=== PATIENT | male | born 1960 | race Caucasian/White ===

== ENCOUNTER 2021-03-24 18:46 | Emergency (ER) | payer BC ==
[2021-03-24] MEDS ORDERED: Diphtheria,Pertussis(Acell),Tetanus Vaccine 0.5 ML Syringe IM ONE (19:08)
[2021-03-24] MEDS ORDERED: Lidocaine 1% with EPINEPHrine 1:100,000 10 ML MDV INJECT ONE (19:11)
--- NOTE | 2021-03-24 19:17 | EDM.PDOC ---
ED HPI GENERAL MEDICAL PROBLEM - General Chief Complaint: Laceration Stated Complaint: HEAD LAC Time Seen by Provider: 03/24/21 19:10 - History of Present Illness INITIAL COMMENTS - FREE TEXT/NARRATIVE: arrived by private vehicle accompanied by injury about 1 hour ago sat down on an adjustable stool the stool went down and he fell backward struck back of head on pipe bending machine sustained laceration to scalp with moderate bleeding, now resolved no loss of consciousness no significant pain at site no nausea, dizziness, visual disturbance, vomiting does not take anticoagulant medication Endorses mild pain in right upper back Otherwise no significant pain or injury complaints tetanus vaccination uncertain Upper Back Pain Score (Numeric/FACES): 3 - Related Data Allergies Allergy/AdvReac Type Severity Reaction Status Date / Time No Known Allergies Allergy Verified 03/24/21 18:58 Past Medical History Cardiovascular History: Reports: Hypertension Respiratory History: Reports: Asthma - Infectious Disease History Infectious Disease History: Reports: Chicken Pox Social & Family History - Family History Family Medical History: No Pertinent Family History ED ROS GENERAL - Review of Systems Review Of Systems: See Below Constitutional: Denies: Malaise, Weakness HEENT: Denies: Vision Change Respiratory: Denies: Shortness of Breath GI/Abdominal: Denies: Nausea, Vomiting Musculoskeletal: Reports: Back Pain (Mild, upper) Skin: Reports: Wound Neurological: Denies: Headache, Trouble Speaking, Gait Disturbance ED EXAM, SKIN/RASH Exam: See Below Text/Narrative:: Constitutional - awake; alert; no acute distress Head - no facial swelling or weakness; left parietal-occipital scalp laceration, 3 cm length, curvilinear with oblique contour, full-thickness Eyes - extra ocular motion intact; conjunctiva normal ENT - no nasal deformity; no epistaxis; normal phonation Neck - no swelling Respiratory - normal respiratory effort Cardiovascular - regular rhythm; normal rate Musculoskeletal - grossly normal strength and motion; no swelling or deformity Skin - warm; dry; scalp laceration as above Neurologic - normal speech; no weakness; gait intact Psychiatric - normal mood and affect; memory and attention normal ED SKIN PROCEDURES - Laceration/Wound Repair Left Posterior Lateral Head Appearance: Subcutaneous, Clean Anesthetic Type: Local Local Anesthesia - Lidocaine (Xylocaine): 1% with EPI Local Anesthetic Volume: 5cc Skin Prep: Saline Closed with: Sutures Lac/Wound length In cm: 3 Suture Size: 4-0 # of Sutures: 4 Suture Type: Mattress Tetanus Status Addressed: Yes Complications: No Course - Vital Signs Text/Narrative:: symptoms and examination were discussed There was no indication for ED investigation Repair of wound was advised, and patient was agreeable Tdap vaccine was administered Procedure was performed as noted above Potential for wound infection was discussed Patient was felt to be stable for outpatient follow-up Return precautions were provided Last Recorded V/S: Last Vital Signs Temp 36.1 C 03/24/21 18:52 Pulse 62 03/24/21 18:52 Resp 20 03/24/21 18:52 BP 134/68 03/24/21 18:52 Pulse Ox 98 03/24/21 18:52 - Orders/Labs/Meds Meds: Medications Discontinued Medications Generic Name Dose Route Start Last Admin Trade Name Amelia PRN Reason Stop Dose Admin Diphtheria/Tetanus/Acell Pertussis 0.5 ml 03/24/21 19:08 03/24/21 19:16 Diphtheria,Pertussis(Acell),Tetanus Vaccine 0.5 Ml Syringe IM 03/24/21 19:09 0.5 ml .ONCE ONE Administration Lidocaine/Epinephrine 10 ml 03/24/21 19:11 03/24/21 19:20 Lidocaine 1% With Epinephrine 1:100,000 10 Ml Mdv INJECT 03/24/21 19:12 10 ml ONETIME ONE Administration Departure - Departure Time of Disposition: 19:46 Disposition: Home, Self-Care 01 Condition: Good Clinical Impression: Laceration of scalp - Discharge Information *PRESCRIPTION DRUG MONITORING PROGRAM REVIEWED*: Not Applicable *COPY OF PRESCRIPTION DRUG MONITORING REPORT IN PATIENT CLARA: Not Applicable Instructions: Laceration Care, Adult Referrals: PCP,Not In Area [Primary Care Provider] - Forms: ED Department Discharge Additional Instructions: Return if condition worsens May resume usual activity and medications Keep wound clean and dry as far as possible; wash gently as needed for cleaning and hygiene but avoid getting wet unnecessarily; protect from soiling and injury There are 4 sutures which require removal in 7 days Follow-up with primary care provider is recommended Sepsis Event Note (ED) - Evaluation Sepsis Screening Result: No Definite Risk - Focused Exam Vital Signs: Vital Signs Temp Pulse Resp BP Pulse Ox 03/24/21 18:52 36.1 C 62 20 134/68 98
== END 2021-03-24 19:55 | disposition home or self-care (01) ==
LOC: JD.ED 18:46
DX: S01.01XA Laceration without foreign body of scalp, initial encounter (principal); I10 Essential (primary) hypertension; Z23 Encounter for immunization; W18.09XA Striking against other object with subsequent fall, initial encounter
CPT/HCPCS: 12002; 90471; 90715; 99282; 99282-25